=== PATIENT | male | born 2000 | race Caucasian/White ===

== ENCOUNTER 2025-06-04 00:17 | Emergency (ER) | payer OTHER ==
[~2025-06-04] VITALS: Ht 185.4 cm; Wt 86.6 kg
[2025-06-04 00:22] VITALS: BP 122/62; PULSE 89; TEMP 96.8; O2SAT 99
[2025-06-04 00:47] VITALS: RESP 18
[2025-06-04] MEDS: HYDROcodone/acetaminophen 5mg/325mg tablet PO ONE (00:47)
[2025-06-04] MEDS: Cipro HC otic suspension 10ML bottle LEFT EAR SCH (00:55)
[2025-06-04] MEDS ORDERED: CIPR7.5D7 OT (01:05)
[2025-06-04] MEDS ORDERED: AMOX-117 PO (01:05)
--- NOTE | 2025-06-04 01:05 | Physician Documentation ---
History of Present Illness ~ Chief Complaint: Ear Pain Stated Complaint: EAR INFECTION Time Seen by MD: 00:52 HPI This is a 25-year-old previously healthy male who comes in for evaluation of decreased hearing, pain in his left ear. He states that he produces a lot of ear wax, he attempted to clear it out three days ago when he experienced an immediate onset of severe sharp pain, that is slightly improved. He noticed some drainage out with the ear. The particular palliating or aggravating factors. This never happened in the past. Did not attempt to treat it. Denies any other symptoms. No concern for tobacco, alcohol or illicit substances use Medication Reconciliation Allergies: Coded Allergies: No Known Allergies (Unverified , 06/04/25) Review of Systems ROS 10 point review of systems was performed and unless noted above in HPI is negative for acute process/complaint. Physical Exam Vital Signs: Temperature: 96.8, Source: Temporal, Heart Rate: 89, Respiratory Rate: 18, BP: 122/62, Pulse Oximetry: 99, Weight: 86.600 Physical Exam Physical examination: GENERAL: Awake, alert, oriented, GCS 15, no apparent distress, non-toxic appearing, answers questions, follows commands appropriately. Examined in the RAP room HEENT: Atraumatic, normocephalic, pupils equal, extraocular muscles intact Active gross movements, sclerae anicteric, mucus membranes moist, no stridor. NECK: Midline, no JVD CARDIOVASCULAR: Good skin perfusion without evidence of pallor, mottling. PULMONARY: Nonlabored, symmetric chest rise, no audible wheezing, no accessory muscle use, no respiratory distress, speaking in full sentences. GASTROINTESTINAL: Not distended. NEUROLOGIC: Lucid with normal mental status. Normal facial symmetry. Moves all extremities symmetrically and with purpose. No truncal ataxia. Speech is fluid without evidence of dysarthria or aphasia, no focal deficits appreciated. EXTREMITIES: Acute deformities Skin: warm, dry PSYCHIATRIC: Normal affect, normal insight, normal concentration. Focused exam: [Left tympanic membrane is obliterated, the canal itself is erythematous, swollen, there is discharge.] Progress Results/Orders Results/Orders Completed Orders - MEHRDAD CARDOSO DO Hydrocodone/Apap 5/325mg Tab ([place] 5/32 (06/04/25 00:40) Medications Received in ER Medications (Trade) Dose Ordered Sig/Sampson Route PRN Reason Start Time Stop Time Status Last Admin Dose Admin (Kapaa 5/325mg tablet) 1 tab ONCE ONCE PO 06/04/25 00:40 06/04/25 00:41 DC 06/04/25 00:47 1 TAB Vital Signs 06/04/25 06/04/25 00:22 00:47 Temp 96.8 Pulse 89 Resp 15 18 B/P (MAP) 122/62 Pulse Ox 99 Medical Decision Making Findings Facility Status: ED Holds, E process The plan was discussed with the patient, who demonstrates clear understanding of the plan and is in agreement with the plan unless otherwise noted in the chart. All questions have been answered, all concerns were addressed unless otherwise documented. I was available throughout their ED stay for frequent reassessment and questions. Differential Diagnoses (considered and possible or likely): [Ruptured tympanic membrane, otitis externa, less likely otitis media, clinically not consistent with a mastoiditis, no evidence of peritonsillar abscess or retropharyngeal abscess] ??Differential Diagnoses (considered and unlikely, not requiring evaluation currently): [See above] MDM Data Please see [facility] for the following: Independent Historians and external Records Review. Historian: [Patient] Independent Historians: ?[Girlfriend] Medication Management: [Reviewed medication list] Social History and determinants: [Reviewed] Please see the body of the note for the following: Any independent interpretations of ECG, imaging studies. All vitals signs/haemodynamics, ordered tests were independently reviewed and interpreted by myself. Nursing triage complaint and vitals reviewed, additional nursing notes were reviewed as available and I agree unless otherwise noted or documented in contradiction in the chart Vital Signs: Independently reviewed Labs: Independently interpreted Imaging: Independently interpreted Old Medical Records: Independently reviewed, see [facility] for relevant summary and i nformation Pulse Oximetry: [97%] interpreted as [normal on room air] by me Additionally notably showing: [Hemodynamically stable] Tests considered but not ordered include: [Hematologic workup and imaging has been considered but does not appear to be necessary given clinical nature of diagnosis] Social Determinants of Health Impact: Patient was evaluated in [facility], [facility] [place] access to healthcare due to below par ratio of patient to medical providers. [] Comorbid Conditions Impacting Present Evaluation and Care/Treatment: [None] Management Discussions with other Healthcare Providers: [None] Treatment and Disposition Medication Management (Given or considered): [Pain management, antibiotics]. See EMR for details Consideration for Hospitalization/Escalation/Deescalation of Care: Admission for observation has been considered, [however the patient is able to tolerate p.o., their symptoms are controlled, they are able to rely on oral medications, and their chief complaint/diagnosis can be managed on outpatient basis.] ?ED Course:?[No clinical deterioration] ?Shared decision making:?[Patient is hemodynamically stable for discharge home with follow with their primary care provider. [ ] Specific and cautious return precautions provided and discussed with full understanding. Any incidental findings were also discussed and follow up recommendations given. [] All questions answered. Patient/family were able to verbalize back return precautions. Patient/family agree to plan. Copies of imaging and laboratory studies were provided.] Code status:?FULL Please see the full Electronic Medical Record for full details of nursing documentation, medications list, other records of complete past medical history and conditions, vital signs, laboratory studies, and any radiologic study interpretations by radiologists. Portions of this note were completed using [employer] dictation software and as a result there may exist minor errors in spelling. I have reviewed elements of past family and social history and agree as included in note. Departure Disposition: 01 HOME / SELF CARE / HOMELESS Impression: Primary Impression: Ruptured tympanic membrane Additional Impression: Otitis externa Condition: Improved Discharge Instructions: Eardrum Rupture, Adult, Otitis Externa Referrals: NO PRIMARY CARE PROVIDER (PCP) Prescriptions Ciprofloxacin HCl/Dexameth (Ciproflox-Dexameth Otic Susp) 0.3 %-0.1 % Drops.susp 3 DROP OT BID for 7 Days, #10 ML 0 Refills Prov: MEHRDAD CARDOSO DO 06/04/25 Amox Tr/Potassium Clavulanate (Augmentin 875-125 Tablet) 1 Each Tablet 1 TAB PO Q12H for 10 Days, #20 TAB Prov: MEHRDAD CARDOSO DO 06/04/25 Education Educated: Patient, Family Educated regarding: diagnosis, treatment, prognosis, need for follow up Signature Scribe Signature: No scribe Attestation: Date: Jun 04, 2025 Time: 01:06 This note accurately reflects clinical decisions, work performed by myself, DO JANAE Kirkpatrick NICHOLAS M DO Jun 04, 2025 01:05
[2025-06-04] MEDS: amox tr/potassium clavulanate 875/125mg TAB PO ONE (01:23)
[2025-06-04] MEDS: CIPROFLOXACIN HCL/DEXAMETH 7.5 ML DROPS.SUSP ONE (01:24)
== END 2025-06-04 01:35 | disposition home or self-care (01) ==
LOC: ER 00:19
DX: H72.92 Unspecified perforation of tympanic membrane, left ear (principal); H60.92 Unspecified otitis externa, left ear
CPT/HCPCS: 99284